=== PATIENT | female | born 1980 | race African-American/Black ===

== ENCOUNTER 2019-08-03 11:29 | Inpatient (IN) | payer OTHER ==
[2019-08-03 12:33] VITALS: BMI 21.8
--- NOTE | 2019-08-03 14:06 | HP ---
CIWA Score Nausea/Vomitin-Mild Nausea/No Vomiting Muscle Tremors: 3 Anxiety: 4-Mod. Anxious/Guarded Agitation: 1-Slight > Activity Paroxysmal Sweats: No Perspiration Orientation: 0-Oriented Tacttile Disturbances: 0-None Auditory Disturbances: 1-Very Mild Visual Disturbances: 2-Mild Sensitivity Headache: 2-Mild CIWA-Ar Total Score: 14 - Admission Criteria OASAS Guidelines: Admission for Medically Managed Detox: Requires at least one of the followin. CIWA greater than 12 2. Seizures within the past 24 hours 3. Delirium tremens within the past 24 hours 4. Hallucinations within the past 24 hours 5. Acute intervention needed for co occurring medical disorder 6. Acute intervention needed for co occurring psychiatric disorder 7. Severe withdrawal that cannot be handled at a lower level of care (continued vomiting, continued diarrhea, abnormal vital signs) requiring intravenous medication and/or fluids 8. Patient presents the following: CIWA greater than 12 Admission Criteria Met: Admission criteria met Admitting History and Physical - Admission History Source: Patient Limitations to Obtaining History: No Limitations - Past Medical History Psych: Yes: Addictions - Smoking History Smoking history: Current every day smoker Have you smoked in the past 12 months: Yes Aproximately how many cigarettes per day: 20 - Alcohol/Substance Use Hx Alcohol Use: Yes History of Substance Use: reports: Cocaine, Marijuana - Social History Usual Living Arrangement: Yes: Alone, Other (correction) ADL: Support Services (on disability) Admission ROS S - HPI Chief Complaint: I want to stop using crack and drinking Allergies/Adverse Reactions: Allergies Allergy/AdvReac Type Severity Reaction Status Date / Time naltrexone [From Vivitrol] AdvReac Intermediate agitated Verified 08/03/19 14:06 History of Present Illness: 38 yo woman here for detox from alcohol. Patient is homeless, reports being disabled due to learning problem. She denies psychiatric history. No seizures but does have black outs. First time her for detox but states she was in detox about two years ago, not sure why she relapsed a few weeks ago. States she gets 'the shakes' when she tried to stop drinking. States she was given Vivitrol once but 'bugged out' - got agitated. States she has been in multiple outpatient program but keeps relapsing. Exam Limitations: No Limitations - Ebola screening Have you traveled outside of the country in the last 21 days: No (N) Have you had contact with anyone from an Ebola affected area: No - Review of Systems Constitutional: Loss of Appetite, Malaise, Changes in sleep, Weakness EENT: reports: Dental Problems ('messed up tooth' - hard to chew) Respiratory: reports: No Symptoms reported Cardiac: reports: No Symptoms Reported GI: reports: Poor Fluid Intake, Abdominal cramping : reports: Frequency Musculoskeletal: reports: Back Pain Integumentary: reports: Dryness, Lesions (callous on feet) Neuro: reports: Headache, Tremors, Weakness Endocrine: reports: No Symptoms Reported Hematology: reports: No Symptoms Reported Psychiatric: reports: Judgement Intact, Mood/Affect Appropiate, Anxious Other Systems: Reviewed and Negative Patient History - Patient Medical History Hx Asthma: No Hx Cancer: No Hx Cardiac Disorders: No Hx Congestive Heart Failure: No Hx Hypertension: No Hx Hypercholesterolemia: No HX Cerebrovascular Accident: No Hx Seizures: No Hx Diabetes: No Hx Gastrointestinal Disorders: No Hx Liver Disease: No Hx Genitourinary Disorders: No Hx Sexually Transmitted Disorders: No Hx Renal Disease (ESRD): No Hx Thyroid Disease: No Hx Human Immunodeficiency Virus (HIV): No Hx Hepatitis C: No Hx Depression: No Hx Suicide Attempt: No (denies) Hx Bipolar Disorder: No Hx Schizophrenia: No - Patient Surgical History Past Surgical History: Yes Hx Orthopedic Surgery: Yes (left bunion surgery) - PPD History Previous Implant?: Yes Documented Results: Negative w/o proof Implanted On Prior R Admission?: No PPD to be Administered?: Yes - Reproductive History Patient is a Female of Child Bearing Age (11 -55 yrs old): Yes - Smoking Cessation Smoking history: Current every day smoker Have you smoked in the past 12 months: Yes Aproximately how many cigarettes per day: 20 Initiated information on smoking cessation: Yes 'Breaking Loose' booklet given: 08/03/19 - Substance & Tx. History Hx Alcohol Use: Yes Hx Substance Use: Yes Substance Use Type: Alcohol, Cocaine, Marijuana Hx Substance Use Treatment: Yes ([facility]; 'many' outpatient programs, Vivitrol) - Substances abused Alcohol Substance route: Oral Frequency: Daily Amount used: 1 quart of Dane, Age of first use: 15 Date of last use: 08/01/19 Crack Substance route: Smoking Frequency: Daily Amount used: 4-5 ($10 bag) Age of first use: 17 Date of last use: 08/03/19 Marijuana/Hashish Substance route: Smoking Frequency: Daily Amount used: 2 bags/daily Age of first use: 14 Date of last use: 08/03/19 Admission Physical Exam [facility] - Vital Signs Vital Signs: Vital Signs - 24 hr 08/03/19 12:24 Temperature 99.5 F Pulse Rate 96 H Respiratory 18 Rate Blood Pressure 97/64 - Physical General Appearance: Yes: Nourished, Appropriately Dressed, Mild Distress, Thin, Tremorous HEENTM: Yes: EOMI, Hearing grossly Normal, Normocephalic, Normal Voice, Pharynx Normal, Other (c/o left sided tooth pain - no swelling noted) Respiratory: Yes: Normal Breath Sounds, No Respiratory Distress Neck: Yes: No masses,lesions,Nodules, Supple Breast: Yes: Breast Exam Deferred Cardiology: Yes: Regular Rhythm, Regular Rate Abdominal: Yes: Soft Genitourinary: Yes: Frequency Back: Yes: Normal Inspection Musculoskeletal: Yes: full range of Motion, Gait Steady, Back pain Extremities: Yes: Normal Inspection, Normal Range of Motion, Non-Tender, Tremors Neurological: Yes: Fully Oriented, Alert, Normal Mood/Affect, Normal Response Integumentary: Yes: Dry, Warm, Other (soles both feet with thickened callous and scaly rash) Lymphatic: Yes: Within Normal Limits - Diagnostic (1) Alcohol dependence with withdrawal, uncomplicated Current Visit: Yes Status: Chronic (2) Crack cocaine use Current Visit: Yes Status: Chronic (3) Dehydration Current Visit: Yes Status: Chronic (4) Callus of foot Current Visit: Yes Status: Chronic (5) Learning disability Current Visit: Yes Status: Chronic (6) Nicotine dependence Current Visit: Yes Status: Chronic Qualifiers: Nicotine product type: cigarettes Substance use status: uncomplicated Qualified Code(s): F17.210 - Nicotine dependence, cigarettes, uncomplicated (7) Tinea pedis Current Visit: Yes Status: Chronic Qualifiers: Laterality: bilateral Qualified Code(s): B35.3 - Tinea pedis (8) Tooth ache Current Visit: Yes Status: Chronic (9) Cannabis dependence Current Visit: Yes Status: Chronic Cleared for Admission [facility] - Detox or Rehab [facility] Level of Care: Medically Managed Detox Regimen/Protocol: Librium Breathalyzer - Breathalyzer Breathalyzer: 0 POC Urine test - Control test control: Yes - Result Urine Test Results: Negative - NO line present (per Shaniqua) Urine Drug Screen - Test Device Lot number: [id number] Expiration date: 02/20/21 - Control Is test valid?: Yes - Results Drug screen NEGATIVE: No Urine drug screen results: THC-Marijuana, ELDON-Cocaine Inpatient Rehab Admission - Rehab Decision to Admit Inpatient rehab admission?: No
[2019-08-03] MEDS ORDERED: MAGNESIUM HYDROX 2400MG/30ML ORAL SUSPENSION 30 ML CUP PO PRN (14:21)
[2019-08-03] MEDS ORDERED: chlordiazePOXIDE HCL 25 MG CAPSULE PO PRN (14:21)
[2019-08-03] MEDS ORDERED: IBUPROFEN 400 MG TABLET (FP) PO PRN (14:21)
[2019-08-03] MEDS ORDERED: MAG HYDROX/AL HYDROX/SIMETH 30 ML UNIT-DOSE CUP PO PRN (14:21)
[2019-08-03] MEDS ORDERED: MAGNESIUM CITRATE 300 ML BOTTLE PO PRN (14:21)
[2019-08-03] MEDS ORDERED: hydrOXYzine PAMOATE 25 MG CAPSULE (FP) PO PRN (14:21)
[2019-08-03] MEDS ORDERED: MENTHOL/PHENOL 1 EACH UD MM PRN (14:21)
[2019-08-03] MEDS ORDERED: BISMUTH SUBSALICYLATE 524 MG/30 ML UD PO PRN (14:21)
[2019-08-03] MEDS ORDERED: ACETAMINOPHEN 325 MG TABLET (FP) PO PRN ×2 (14:21)
[2019-08-03] MEDS ORDERED: METHOCARBAMOL 500 MG TABLET PO PRN (14:21)
[2019-08-03] MEDS ORDERED: BENZOCAINE 20 % GEL TUBE MM PRN (14:36)
[2019-08-03] MEDS ORDERED: chlordiazePOXIDE HCL 25 MG CAPSULE PO ONE (14:45)
--- NOTE | 2019-08-03 15:33 | EKG ---
Test Reason : Blood Pressure : / mmHG Vent. Rate : 086 BPM Atrial Rate : 086 BPM P-R Int : 124 ms QRS Dur : 080 ms QT Int : 404 ms P-R-T Axes : 072 064 050 degrees QTc Int : 483 ms NORMAL SINUS RHYTHM PROLONGED QT ABNORMAL ECG NO PREVIOUS ECGS AVAILABLE Confirmed by POLLY BUTT MD ([id number]) on 08/03/2019 3:33:07 PM Referred By: Confirmed By:POLLY BUTT MD
[2019-08-03] MEDS: NICOTINE 21 MG/24 HOURS TOPICAL PATCH TD SCH (15:41)
[2019-08-03 18:47] LABS: PH,URINE 5.5 (5.0-8.0); URINE APPEARANCE CLEAR; URINE BILIRUBIN NEGATIVE (NEGATIVE); URINE COLOR YELLOW; URINE GLUCOSE (UA) NEGATIVE (NEGATIVE); URINE KETONE NEGATIVE (NEGATIVE); URINE LEUK ESTERASE NEGATIVE (NEGATIVE); URINE NITRITE NEGATIVE (NEGATIVE); URINE PROTEIN NEGATIVE (NEGATIVE)
[2019-08-03] MEDS: chlordiazePOXIDE HCL 25 MG CAPSULE PO SCH ×2 (18:49→23:54)
[2019-08-03] MEDS ORDERED: MELATONIN 5 MG TABLETS PO PRN (22:00)
[2019-08-03] MEDS ORDERED: THIAMINE HCL 100 MG TABLET (FP) PO SCH (22:00)
[2019-08-03] MEDS: TOLNAFTATE 1% CREAM 15 GM TUBE TP SCH (23:54)
[2019-08-04] MEDS: chlordiazePOXIDE HCL 25 MG CAPSULE PO SCH ×2 (05:10→11:37)
[2019-08-04 09:15] VITALS: BP 104/66; PULSE 72; TEMP 96.7
[2019-08-04] MEDS ORDERED: PRENATAL VITAMINS W/ FOLIC ACID TABLET (FP) PO SCH (10:00)
[2019-08-04 10:43] LABS: HEMATOCRIT 36.2 % (32.4-45.2); HEMOGLOBIN 11.6 GM/dL (10.7-15.3); MCHC 32.1 g/dl (32.0-36.0); MEAN CELL VOLUME 84.1 fl (80-96); MEAN PLT VOLUME 8.4 fl (7.5-11.1); PLATELET COUNT 290 K/MM3 (134-434); RBC 4.31 M/mm3 (3.60-5.2); RDW 14.3 % (11.6-15.6)
[2019-08-04 11:02] LABS: ALBUMIN 2.5 g/dl (3.4-5.0); BILIRUBIN,TOTAL 0.2 mg/dL (0.2-1); BLOOD UREA NITROGEN 13.6 mg/dL (7-18); CALCIUM 7.6 mg/dL (8.5-10.1); CREATININE 0.8 mg/dL (0.55-1.3); POTASSIUM 3.5 mmol/L (3.5-5.1); TOT PROT 5.8 g/dl (6.4-8.2)
[2019-08-04] MEDS: NICOTINE 21 MG/24 HOURS TOPICAL PATCH TD SCH (11:36)
[2019-08-04] MEDS: TOLNAFTATE 1% CREAM 15 GM TUBE TP SCH (11:37)
--- NOTE | 2019-08-04 12:40 | PN ---
S CIWA - CIWA Score Nausea/Vomitin-Mild Nausea/No Vomiting Muscle Tremors: 4-Moderate,w/Arms Extend Anxiety: 3 Agitation: 1-Slight > Activity Paroxysmal Sweats: 2 Orientation: 0-Oriented Tacttile Disturbances: 0-None Auditory Disturbances: 0-None Visual Disturbances: 1-Very Mild Sensitivity Headache: 1-Very Mild CIWA-Ar Total Score: 13 [facility] Progress Note (SOAP) Subjective: 38 years old female dmitted on 08/03/19 for alcohol withdrawal sx management treating with librium detox regimen feeling tired resting in bed prefers to stay in bed today limited conversation with staff Objective: 08/04/19 12:35 Vital Signs Temperature 96.7 F L 08/04/19 09:14 Pulse Rate 72 08/04/19 09:14 Respiratory Rate 18 08/04/19 09:14 Blood Pressure 104/66 08/04/19 09:14 O2 Sat by Pulse Oximetry (%) Laboratory Last Values WBC 9.0 K/mm3 (4.0-10.0) 08/04/19 07:15 RBC 4.31 M/mm3 (3.60-5.2) 08/04/19 07:15 Hgb 11.6 GM/dL (10.7-15.3) 08/04/19 07:15 Hct 36.2 % (32.4-45.2) 08/04/19 07:15 MCV 84.1 fl (80-96) 08/04/19 07:15 MCH 27.0 pg (25.7-33.7) 08/04/19 07:15 MCHC 32.1 g/dl (32.0-36.0) 08/04/19 07:15 RDW 14.3 % (11.6-15.6) 08/04/19 07:15 Plt Count 290 K/MM3 (134-434) 08/04/19 07:15 MPV 8.4 fl (7.5-11.1) 08/04/19 07:15 Sodium 141 mmol/L (136-145) 08/04/19 07:15 Potassium 3.5 mmol/L (3.5-5.1) 08/04/19 07:15 Chloride 104 mmol/L (98-107) 08/04/19 07:15 Carbon Dioxide 30 mmol/L (21-32) 08/04/19 07:15 Anion Gap 7 MMOL/L (8-16) L 08/04/19 07:15 BUN 13.6 mg/dL (7-18) 08/04/19 07:15 Creatinine 0.8 mg/dL (0.55-1.3) 08/04/19 07:15 Est GFR (CKD-EPI)AfAm 107.64 08/04/19 07:15 Est GFR (CKD-EPI)NonAf 92.87 08/04/19 07:15 Random Glucose 117 mg/dL (74-106) H 08/04/19 07:15 Calcium 7.6 mg/dL (8.5-10.1) L 08/04/19 07:15 Total Bilirubin 0.2 mg/dL (0.2-1) 08/04/19 07:15 AST 111 U/L (15-37) H 08/04/19 07:15 ALT 70 U/L (13-61) H 08/04/19 07:15 Alkaline Phosphatase 138 U/L (45-117) H 08/04/19 07:15 Total Protein 5.8 g/dl (6.4-8.2) L 08/04/19 07:15 Albumin 2.5 g/dl (3.4-5.0) L 08/04/19 07:15 Urine Color Yellow 08/03/19 15:45 Urine Appearance Clear 08/03/19 15:45 Urine pH 5.5 (5.0-8.0) 08/03/19 15:45 Ur Specific Only 1.010 (1.010-1.035) 08/03/19 15:45 Urine Protein Negative (NEGATIVE) 08/03/19 15:45 Urine Glucose (UA) Negative (NEGATIVE) 08/03/19 15:45 Urine Ketones Negative (NEGATIVE) 08/03/19 15:45 Urine Blood Negative (NEGATIVE) 08/03/19 15:45 Urine Nitrite Negative (NEGATIVE) 08/03/19 15:45 Urine Bilirubin Negative (NEGATIVE) 08/03/19 15:45 Urine Urobilinogen 1.0 mg/dL (0.2-1.0) 08/03/19 15:45 Ur Leukocyte Esterase Negative (NEGATIVE) 08/03/19 15:45 POC Urine HCG, Qual Negative 08/03/19 15:45 RPR Titer Nonreactive (NONREACTIVE) 08/04/19 07:15 lab noted 08/04/19 12:40 low Ca+++ oscal supplement ast elevation patient refuses to take ativan detox regimen Assessment: 08/04/19 12:41 alcohol withdrawal Plan: librium regimen continue discussing the benefits of ativan
[2019-08-04] MEDS ORDERED: CALCIUM 250MG/VIT-D 125 UNITS 1 COMBO TABLET PO SCH (12:45)
--- NOTE | 2019-08-04 17:31 | DS ---
[facility] Detox Discharge Summary Admission Date: 08/03/19 Discharge Date: 08/04/19 - History Pertinent Past History: Learning disability - Physical Exam Results Vital Signs: Vital Signs Temperature 96.7 F L 08/04/19 09:14 Pulse Rate 72 08/04/19 09:14 Respiratory Rate 18 08/04/19 09:14 Blood Pressure 104/66 08/04/19 09:14 O2 Sat by Pulse Oximetry (%) Pertinent Admission Physical Exam Findings: withdrawal sx Laboratory Last Values WBC 9.0 K/mm3 (4.0-10.0) 08/04/19 07:15 RBC 4.31 M/mm3 (3.60-5.2) 08/04/19 07:15 Hgb 11.6 GM/dL (10.7-15.3) 08/04/19 07:15 Hct 36.2 % (32.4-45.2) 08/04/19 07:15 MCV 84.1 fl (80-96) 08/04/19 07:15 MCH 27.0 pg (25.7-33.7) 08/04/19 07:15 MCHC 32.1 g/dl (32.0-36.0) 08/04/19 07:15 RDW 14.3 % (11.6-15.6) 08/04/19 07:15 Plt Count 290 K/MM3 (134-434) 08/04/19 07:15 MPV 8.4 fl (7.5-11.1) 08/04/19 07:15 Sodium 141 mmol/L (136-145) 08/04/19 07:15 Potassium 3.5 mmol/L (3.5-5.1) 08/04/19 07:15 Chloride 104 mmol/L (98-107) 08/04/19 07:15 Carbon Dioxide 30 mmol/L (21-32) 08/04/19 07:15 Anion Gap 7 MMOL/L (8-16) L 08/04/19 07:15 BUN 13.6 mg/dL (7-18) 08/04/19 07:15 Creatinine 0.8 mg/dL (0.55-1.3) 08/04/19 07:15 Est GFR (CKD-EPI)AfAm 107.64 08/04/19 07:15 Est GFR (CKD-EPI)NonAf 92.87 08/04/19 07:15 Random Glucose 117 mg/dL (74-106) H 08/04/19 07:15 Calcium 7.6 mg/dL (8.5-10.1) L 08/04/19 07:15 Total Bilirubin 0.2 mg/dL (0.2-1) 08/04/19 07:15 AST 111 U/L (15-37) H 08/04/19 07:15 ALT 70 U/L (13-61) H 08/04/19 07:15 Alkaline Phosphatase 138 U/L (45-117) H 08/04/19 07:15 Total Protein 5.8 g/dl (6.4-8.2) L 08/04/19 07:15 Albumin 2.5 g/dl (3.4-5.0) L 08/04/19 07:15 Urine Color Yellow 08/03/19 15:45 Urine Appearance Clear 08/03/19 15:45 Urine pH 5.5 (5.0-8.0) 08/03/19 15:45 Ur Specific Carter 1.010 (1.010-1.035) 08/03/19 15:45 Urine Protein Negative (NEGATIVE) 08/03/19 15:45 Urine Glucose (UA) Negative (NEGATIVE) 08/03/19 15:45 Urine Ketones Negative (NEGATIVE) 08/03/19 15:45 Urine Blood Negative (NEGATIVE) 08/03/19 15:45 Urine Nitrite Negative (NEGATIVE) 08/03/19 15:45 Urine Bilirubin Negative (NEGATIVE) 08/03/19 15:45 Urine Urobilinogen 1.0 mg/dL (0.2-1.0) 08/03/19 15:45 Ur Leukocyte Esterase Negative (NEGATIVE) 08/03/19 15:45 POC Urine HCG, Qual Negative 08/03/19 15:45 RPR Titer Nonreactive (NONREACTIVE) 08/04/19 07:15 - Medication Discharge Medications: Ambulatory Orders NK [No Known Home Medication] 08/03/19 - Diagnosis (1) Alcohol dependence with withdrawal, uncomplicated Current Visit: Yes Status: Chronic (2) Cannabis dependence Current Visit: Yes Status: Chronic (3) Crack cocaine use Current Visit: Yes Status: Chronic (4) Learning disability Current Visit: Yes Status: Chronic (5) Nicotine dependence Current Visit: Yes Status: Chronic Qualifiers: Nicotine product type: cigarettes Substance use status: uncomplicated Qualified Code(s): F17.210 - Nicotine dependence, cigarettes, uncomplicated - AMA Did Patient Leave Against Medical Advice: Yes (Patient adamant on leaving)
[2019-08-05] MEDS ORDERED: chlordiazePOXIDE HCL 25 MG CAPSULE PO SCH (05:00)
[2019-08-06] MEDS ORDERED: chlordiazePOXIDE HCL 10 MG CAPSULE PO PRN
[2019-08-06] MEDS ORDERED: chlordiazePOXIDE HCL 10 MG CAPSULE PO SCH (05:00)
[2019-08-07] MEDS ORDERED: chlordiazePOXIDE HCL 10 MG CAPSULE PO SCH (05:00)
[2019-08-08] MEDS ORDERED: chlordiazePOXIDE HCL 10 MG CAPSULE PO ONE (05:00)
== END 2019-08-04 17:43 | disposition left against medical advice (07) | DRG 770 ==
LOC: YASAS 11:29 → Y3N 14:57
PROVIDERS: ADMIT Allergy & Immunology; ATTEND Allergy & Immunology
PROC: HZ2ZZZZ Detoxification Services for Substance Abuse Treatment (ICD-10-PCS; principal; 2019-08-03)
DX: F10.230 Alcohol dependence with withdrawal, uncomplicated (principal); F14.20 Cocaine dependence, uncomplicated; F12.20 Cannabis dependence, uncomplicated; F17.210 Nicotine dependence, cigarettes, uncomplicated; F81.9 Developmental disorder of scholastic skills, unspecified; E86.0 Dehydration; E83.51 Hypocalcemia; B35.3 Tinea pedis; K08.89 Other specified disorders of teeth and supporting structures; L84 Corns and callosities; Z88.8 Allergy status to other drugs, medicaments and biological substances
CPT/HCPCS: 36415; 80053; 81003; 81025; 85027; 86593; 93005; 93010

== ENCOUNTER 2019-08-19 11:10 | Inpatient (IN) | payer OTHER ==
[2019-08-19 12:19] VITALS: BMI 21.8
--- NOTE | 2019-08-19 12:43 | HP ---
<Bear Wakefield - Last Filed: 08/19/19 13:12> CIWA Score Nausea/Vomitin-No Nausea/No Vomiting Muscle Tremors: None Anxiety: 1-Mildly Anxious Agitation: 0-Normal Activity Paroxysmal Sweats: No Perspiration Orientation: 0-Oriented Tacttile Disturbances: 0-None Auditory Disturbances: 0-None Visual Disturbances: 0-None Headache: 0-None Present CIWA-Ar Total Score: 1 - Admission Criteria OASAS Guidelines: Admission for Medically Managed Detox: Requires at least one of the followin. CIWA greater than 12 2. Seizures within the past 24 hours 3. Delirium tremens within the past 24 hours 4. Hallucinations within the past 24 hours 5. Acute intervention needed for co occurring medical disorder 6. Acute intervention needed for co occurring psychiatric disorder 7. Severe withdrawal that cannot be handled at a lower level of care (continued vomiting, continued diarrhea, abnormal vital signs) requiring intravenous medication and/or fluids 8. Admitting History and Physical - Admission Chief Complaint: requesting rehab History of Present Illness: Pt seeks rehab. Had recently been to [facility] and didn't like it there. Was here last week and left AMA after 1 day. States she had to leave because her kids needed food. Has used crack, marijuana, EtOH, PCP. Last use of crack and marijuana last night. Last EtOH yesterday; some spirit, unclear, which. States she has never withdrawn from EtOH. Denies seizures. States she sometimes wakes up hot and sweaty after a night of drinking, but denies anxiety, trembling , palpitations, and agitation. Has gone 15 years without drinking in the past. Has gone 20 years without using crack. Went 13 years without using marijuana. States she resumed using illicit substances once she lost custody of her children. PMH: Gestational DM, 3 children (1 adopted), 1 spontaneous , gestational DM, vaginal delivery PSH: L Bunion FH: Asthma in daughter Psychiatric: Depression, Substance Use Disorder Medications: none Allergies: Naltrexone: indigestion and hunger Soc: Homeless living in fpc, smokes cigarette 1ppd since age 12, substance use: crack, marijuana, EtOH, PCP, not sexually active History Source: Patient Limitations to Obtaining History: No Limitations - Past Medical History Reproductive: Yes: Other (Gestational DM) ...LMP: 08/05/19 ...: No ...: 4 ...Para: 3 Psych: Yes: Addictions (crack, EtOH, marijuana, PCP), Depression - Past Surgical History Additional Past Surgical History: Bunion L foot - Smoking History Smoking history: Current every day smoker Have you smoked in the past 12 months: Yes Aproximately how many cigarettes per day: 20 - Alcohol/Substance Use Hx Alcohol Use: Yes History of Substance Use: reports: Cocaine, Marijuana - Social History Usual Living Arrangement: Yes: Alone, Other (In fpc) Do you think of yourself as: Bisexual ADL: Support Services (on disability) Occupation: unemployed History of Recent Travel: No Admission ROS S - HPI Allergies/Adverse Reactions: Allergies Allergy/AdvReac Type Severity Reaction Status Date / Time naltrexone [From Vivitrol] AdvReac Intermediate agitated Verified 08/19/19 12:07 - Ebola screening Have you traveled outside of the country in the last 21 days: No Have you had contact with anyone from an Ebola affected area: No Do you have a fever: No - Review of Systems Constitutional: Other (malaise, fatigue) EENT: reports: No Symptoms Reported, Dental Problems (States L lower loose teeth ) Respiratory: reports: No Symptoms reported Cardiac: reports: No Symptoms Reported GI: reports: No Symptoms Reported. denies: Constipated, Nausea, Poor Appetite, Vomiting : reports: No Symptoms Reported. denies: Burning, Dysuria, Discharge, Incontinence Musculoskeletal: reports: Back Pain Integumentary: reports: No Symptoms Reported. denies: Erythema, Rash Neuro: reports: No Symptoms reported. denies: Seizure, Tingling Endocrine: reports: No Symptoms Reported Hematology: reports: No Symptoms Reported Psychiatric: reports: Orientated x3, Depressed. denies: Agitated, Anxious, Disorientated Patient History - Patient Medical History Hx Asthma: No Hx Chronic Obstructive Pulmonary Disease (COPD): No Hx Cancer: No Hx Cardiac Disorders: No Hx Congestive Heart Failure: No Hx Hypertension: No Hx Hypercholesterolemia: No HX Cerebrovascular Accident: No Hx Seizures: No Hx Diabetes: No Hx Gastrointestinal Disorders: No Hx Liver Disease: No Hx Genitourinary Disorders: No Hx Sexually Transmitted Disorders: No Hx Renal Disease (ESRD): No Hx Thyroid Disease: No Hx Human Immunodeficiency Virus (HIV): No Hx Hepatitis C: No Hx Depression: No Hx Suicide Attempt: No Hx Bipolar Disorder: No Hx Schizophrenia: No - Patient Surgical History Past Surgical History: Yes Hx Neurologic Surgery: No Hx Cataract Extraction: No Hx Cardiac Surgery: No Hx Lung Surgery: No Hx Breast Surgery: No Hx Breast Biopsy: No Hx Abdominal Surgery: No Hx Appendectomy: No Hx Cholecystectomy: No Hx Genitourinary Surgery: No Hx Section: No Hx Orthopedic Surgery: Yes (left bunion surgery) Anesthesia Reaction: No - PPD History Previous Implant?: Yes Date: 08/05/19 - Reproductive History Last Menstrual Period: 08/05/19 Patient : No - Smoking Cessation Smoking history: Current every day smoker Have you smoked in the past 12 months: Yes Aproximately how many cigarettes per day: 20 Hx Chewing Tobacco Use: No Initiated information on smoking cessation: Yes 'Breaking Loose' booklet given: 08/19/19 - Substances abused Alcohol Substance route: Oral Frequency: Daily Amount used: 1 [place] Age of first use: 14 Date of last use: 08/17/19 Marijuana/Hashish Substance route: Smoking Frequency: Daily Amount used: $300-500 Age of first use: 12 Date of last use: 08/18/19 Cocaine Substance route: Inhalation Frequency: Daily Amount used: 2-3 BAGS Age of first use: 17 Date of last use: 08/18/19 Admission Physical Exam [facility] - Vital Signs Vital Signs: Vital Signs - 24 hr 08/19/19 12:08 Temperature 97.6 F Pulse Rate 106 H Respiratory 12 Rate Blood Pressure 110/79 - Physical General Appearance: Yes: Within Normal Limits HEENTM: Yes: EOMI, Normocephalic, Normal Voice, SELVIN Respiratory: Yes: Within Normal Limits, Normal Breath Sounds, No Respiratory Distress, No Accessory Muscle Use Neck: Yes: Within Normal Limits, Supple Cardiology: Yes: Within Normal Limits, Regular Rhythm, Regular Rate. No: Murmur , Systolic Murmur, Gallop/S3, Gallop/S4 Abdominal: Yes: Within Normal Limits, Normal Bowel Sounds, Non Tender, Flat, Soft Back: Yes: Within Normal Limits, Normal Inspection Musculoskeletal: Yes: Within Normal Limits, full range of Motion Extremities: Yes: Within Normal Limits, Normal Range of Motion. 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 No: Normal Mood/Affect Screened but not Admitted - Documentation of Visit Screened but not Admitted: No Breathalyzer - Breathalyzer Breathalyzer: 0 POC Urine test - Control test control: Yes Urine Drug Screen - Test Device Lot number: [id number] Expiration date: 02/20/21 - Control Is test valid?: Yes - Results Drug screen NEGATIVE: No Urine drug screen results: THC-Marijuana, ELDON-Cocaine, BZO-Benzodiazepines Inpatient Rehab Admission - Rehab Decision to Admit Inpatient rehab admission?: Yes - Initial Determination Are CD services needed?: Yes Free of communicable disease: Yes Not in need of hospitalization: Yes - Rehab Admission Criteria Previous failed treatment: Yes Poor recovery environment: Yes Comorbidities: Yes Lacks judgement: Yes Patient is meeting Inpatient Rehab admission criteria:: Yes <Esau Pozo - Last Filed: 08/21/19 08:01> CIWA Score - Admission Criteria OASAS Guidelines: Admission for Medically Managed Detox: Requires at least one of the followin. CIWA greater than 12 2. Seizures within the past 24 hours 3. Delirium tremens within the past 24 hours 4. Hallucinations within the past 24 hours 5. Acute intervention needed for co occurring medical disorder 6. Acute intervention needed for co occurring psychiatric disorder 7. Severe withdrawal that cannot be handled at a lower level of care (continued vomiting, continued diarrhea, abnormal vital signs) requiring intravenous medication and/or fluids 8. Admission ROS [facility] - Ebola screening Have you been sick,other than usual withdrawal symptoms: No Cleared for Admission S - Detox or Rehab [facility] Level of Care: Medically Supervised Detox Regimen/Protocol: Not Applicable Claeared for Rehab Admission: Yes Screened but not Admitted - Documentation of Visit Screened but not Admitted: No
[2019-08-19] MEDS ORDERED: P-EPHED 60MG/TRIPROLIDI 2.5MG TABLET PO PRN (13:16)
[2019-08-19] MEDS ORDERED: MAG HYDROX/AL HYDROX/SIMETH 30 ML UNIT-DOSE CUP PO PRN (13:16)
[2019-08-19] MEDS ORDERED: LOPERAMIDE HCL 2 MG CAPSULE PO PRN (13:16)
[2019-08-19] MEDS ORDERED: IBUPROFEN 400 MG TABLET (FP) PO PRN (13:16)
[2019-08-19] MEDS ORDERED: MAGNESIUM CITRATE 300 ML BOTTLE PO PRN (13:16)
[2019-08-19] MEDS ORDERED: guaiFENesin 200 MG/10 ML 10 ML UNIT-DOSE CUPS PO PRN (13:16)
[2019-08-19] MEDS ORDERED: ACETAMINOPHEN 325 MG TABLET (FP) PO PRN (13:16)
[2019-08-19] MEDS ORDERED: MAGNESIUM HYDROX 2400MG/30ML ORAL SUSPENSION 30 ML CUP PO PRN (13:16)
[2019-08-19] MEDS ORDERED: MENTHOL/PHENOL 1 EACH UD MM PRN (13:16)
[2019-08-19] MEDS ORDERED: TUBERCULIN PPD 5 TU/0.1ML VIAL ID ONE (18:02)
[2019-08-19] MEDS ORDERED: MELATONIN 5 MG TABLETS PO PRN (22:00)
[2019-08-19] MEDS ORDERED: THIAMINE HCL 100 MG TABLET (FP) PO SCH (22:00)
[2019-08-20 07:09] VITALS: BP 98/64; PULSE 69; TEMP 97.1
[2019-08-20] MEDS ORDERED: PRENATAL VITAMINS W/ FOLIC ACID TABLET (FP) PO SCH (10:00)
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
[2019-08-20] MEDS ORDERED: MELATONIN 5 MG TABLETS PO PRN (13:44)
[2019-08-20] MEDS ORDERED: hydrOXYzine PAMOATE 50 MG CAPSULE (FP) PO PRN (13:45)
--- NOTE | 2019-08-20 14:02 | PN ---
[facility] Progress Note Note: Pt is a 38 y/o male with a hx of ELIF- admitted to rehab through [facility] on 08/19/19. Pt was admitted to detox here on 08/03/19 and she signed out on 08/04/19 before coming back on 08/19/19. PMHx: Gestational DM, Left foot Bunion. Psych Hx: Depression, Insomnia. Pt refusing to answer this screen writer's call for new patient encounter assessment. Pt was preoccupied with selecting articles of clothing to take with her home. Vital Signs - 24 hr 08/20/19 08/20/19 08/20/19 00:36 03:30 07:06 Temperature 97.1 F L Pulse Rate 69 Respiratory 18 18 17 Rate Blood Pressure 98/64 Alert o x e nad oob ambulating with steady gait. A/P pt not ready to engage in treatment Wants to sign out against Medical Advice. Pt referred to meet with counselling for intervention/aftercare referral if she insists on leaving treatment. Pt was seen by Psych Consult
--- NOTE | 2019-08-20 22:18 | DS ---
[facility] Rehab Discharge Summary - [facility] Rehab Discharge Summary Admission Date: 08/19/19 Discharge Date: 08/20/19 - History Present History: Alcohol dependence, Cannabis dependence, Cocaine dependence, PCP dependence Additional Comments: Pt is a 38 y/o female with a hx of ELIF admitted to rehab from [facility] on 08/19/19 and declined to stay in treatment requesting to leave today. Pt refused to be engaged and unwilling to communicate with this personal lines underwriter or staff re:treatment and stating that she is leaving for personal reasons. Pt was contracted on admission since she has a prior hx of leaving treatment a day after admission and pt encouraged to stay in treatment by nursing and counseling staff to no avail. Pt was admitted to detox here on 08/03/19 and she signed out on 08/04/19 and returned to treatment on 08/19/19. Pertinent Past History: Calluses foot Mood disorder - Discharge Physical Exam Vital Signs: Vital Signs Temperature 97.1 F L 08/20/19 07:06 Pulse Rate 69 08/20/19 07:06 Respiratory Rate 17 08/20/19 07:06 Blood Pressure 98/64 08/20/19 07:06 O2 Sat by Pulse Oximetry (%) Pt refused exit PE Alert o x 3 nad oob ambulating with steady gait. Pertinent Admission Physical Exam Findings: Laboratory Tests 08/19/19 08/19/19 12:29 12:30 POC Urine HCG, Qual Negative HIV 1&2 Antibody Screen Negative HIV P24 Antigen Negative - Treatment Discharge Condition: Discharge condition good Hospital Course: Pt was admitted 08/19/19 and signed herself out 08/20/19. Unwilling to be engaged in treatment despite all efforts to encourage patient to consider staying for treatment. Pt has a hx of incomplete and premature exit from treatment. - Medication Discharge Medications: Ambulatory Orders NK [No Known Home Medication] 08/03/19 - Medication-Assisted Treatment (MAT) Medication-Assisted Treatment (MAT): No - Discharge Instructions Diet, activity, other medical instructions: Diet:Regular Activity: oob ad jessica Other medical instructions:follow up with CD aftercare referral to [facility] Residential program as recommended. Follow up with your primary care with provider within 1-2 weeks after discharge. - Diagnosis (1) Alcohol dependence Status: Chronic Qualifiers: Substance use status: uncomplicated Qualified Code(s): F10.20 - Alcohol dependence, uncomplicated (2) Cannabis dependence Status: Chronic (3) Cocaine dependence Status: Chronic Qualifiers: Substance use status: uncomplicated Qualified Code(s): F14.20 - Cocaine dependence, uncomplicated (4) Callus of foot Status: Chronic (5) Nicotine dependence Status: Chronic Qualifiers: Nicotine product type: cigarettes Substance use status: uncomplicated Qualified Code(s): F17.210 - Nicotine dependence, cigarettes, uncomplicated - Follow-up Referral Minutes to complete discharge: 15 - AMA Did Patient Leave Against Medical Advice: Yes
== END 2019-08-20 15:05 | disposition left against medical advice (07) | DRG 770 ==
LOC: YASAS 11:10 → Y3E 12:39
PROVIDERS: ADMIT Allergy & Immunology; ATTEND Allergy & Immunology
PROC: HZ42ZZZ Group Counseling for Substance Abuse Treatment, Cognitive-Behavioral (ICD-10-PCS; principal; 2019-08-19)
DX: F10.20 Alcohol dependence, uncomplicated (principal); F14.20 Cocaine dependence, uncomplicated; F12.20 Cannabis dependence, uncomplicated; F17.210 Nicotine dependence, cigarettes, uncomplicated; F19.24 Other psychoactive substance dependence with psychoactive substance-induced mood disorder; F19.282 Other psychoactive substance dependence with psychoactive substance-induced sleep disorder; L84 Corns and callosities; Z88.8 Allergy status to other drugs, medicaments and biological substances
CPT/HCPCS: 36415; 81025; 87389